=== PATIENT | female | born 1980 | race Caucasian/White ===

== ENCOUNTER 2016-05-17 09:17 | Emergency (ER) | payer BC ==
[2016-05-17 09:40] VITALS: BP 146/87
--- NOTE | 2016-05-17 10:48 | RAD ---
HISTORY: Trauma, right ankle pain COMPARISONS: None VIEWS: 3, Frontal, lateral, and oblique views of the right ankle FINDINGS: BONE DENSITY: Normal. BONES: There is no displaced fracture. JOINTS: There is no arthropathy. ALIGNMENT: There is no dislocation. SOFT TISSUES: Unremarkable. OTHER FINDINGS: None. IMPRESSION: NO ACUTE OSSEOUS INJURY. IF SYMPTOMS PERSIST, RECOMMEND REPEAT IMAGING.
--- NOTE | 2016-05-17 10:51 | RAD ---
HISTORY: Trauma right foot lateral pain COMPARISONS: None VIEWS: 3, Frontal, lateral, and oblique views of the right foot FINDINGS: BONE DENSITY: Normal. BONES: There is no displaced fracture. JOINTS: There is no arthropathy. ALIGNMENT: There is no dislocation. SOFT TISSUES: Unremarkable. OTHER FINDINGS: None. IMPRESSION: NO ACUTE OSSEOUS INJURY. IF SYMPTOMS PERSIST, RECOMMEND REPEAT IMAGING.
--- NOTE | 2016-05-17 11:12 | UC ---
Lower Extremity/Ankle HPI - HPI Summary HPI Summary: SLIPPED, AND TWISTED RIGHT ANKLE THIS MORNING. PAIN IN ANKLE AND FOOT. NO OTHER INJURIES. NO PREVIOUS ANKLE INJURIES. PAIN WITH WEIGHT BEARING. MILD SWELLING BEGINNING TO DEVELOP. - History of Current Complaint Chief Complaint: UCLowerExtremity Stated Complaint: ANKLE INJURY Time Seen by Provider: 05/17/16 10:03 Hx Obtained From: Patient Hx Last Menstrual Period: 04/21/16 Onset/Duration: Sudden Onset, Lasting Hours, Still Present Severity Initially: Moderate Severity Currently: Moderate Aggravating Factor(s): Standing, Ambulation Alleviating Factor(s): Rest, Elevation Able to Bear Weight: Yes - WITH PAIN - Risk Factors Gout Risk Factors: Negative DVT Risk Factors: Negative Septic Arthritis Risk Factor: Negative - Allergies/Home Medications Allergies/Adverse Reactions: Allergies Allergy/AdvReac Type Severity Reaction Status Date / Time Amoxicillin Allergy Hives Verified 09/03/13 10:55 Cefaclor [From Ceclor] Allergy hives/ Verified 09/03/13 10:55 joint swelling Erythromycin Allergy Nausea Verified 09/03/13 10:55 Sulfa Drugs Allergy Unknown Verified 09/03/13 10:55 Reaction Details Home Medications: Home Medications Norgestimate-Ethinyl Estradiol [Trinessa 0.18/0.215/0.25 mg-35 Mcg] 1 tab PO [History] Propranolol TAB* [Inderal TAB*] 10 mg PO BID 05/17/16 [History Confirmed ] Zolmitriptan 2.5 mg PO 05/17/16 [History] PMH/Surg Hx/FS Hx/Imm Hx Previously Healthy: Yes Endocrine History Of: Denies: Diabetes, Thyroid Disease Cardiovascular History Of: Denies: Cardiac Disorders, Hypertension Respiratory History Of: Denies: COPD, Asthma GI/ History Of: Denies: Ulcer Neurological History Of: Reports: Migraine - A TEEN ONLY - Surgical History Surgical History: Yes Surgery Procedure, Year, and Place: 2000, LAP FOR ENDOMETRIOSIS, [facility] [place]. 2011, [place] [facility]SY, [facility] [place]. D&C - Family History Known Family History: Positive: Cardiac Disease - MATERNAL GF, Other - NO JOINT LAXITY; MATERNAL GF CANCER; MATERNAL GM ALZHEIMERS - Social History Occupation: Employed Full-time Alcohol Use: Occasionally Substance Use Type: None Smoking Status (MU): Never Smoked Tobacco Have You Smoked in the Last Year: No When Did the Patient Quit Smoking/Using Tobacco: 15 years - Immunization History Most Recent Influenza Vaccination: fall 2012 Most Recent Tetanus Shot: unsure Most Recent Pneumonia Vaccination: never Review of Systems Constitutional: Negative Skin: Negative Eyes: Negative ENT: Negative Respiratory: Negative Cardiovascular: Negative Gastrointestinal: Negative Genitourinary: Negative Motor: Negative Neurovascular: Negative Musculoskeletal: Arthralgia - RIGHT FOOT AND ANKLE, Edema, Myalgia - RIGHT FOOT AND ANKLE Neurological: Negative Psychological: Negative All Other Systems Reviewed And Are Negative: Yes Physical Exam Triage Information Reviewed: Yes Appearance: Well-Appearing, No Pain Distress, Well-Nourished Vital Signs: Initial Vital Signs Temp 97.9 F 05/17/16 09:32 Pulse 69 05/17/16 09:32 Resp 18 05/17/16 09:32 BP 146/87 05/17/16 09:32 Pulse Ox 100 05/17/16 09:32 Vital Signs Reviewed: Yes Eye Exam: Normal Eyes: Positive: Conjunctiva Clear ENT Exam: Normal ENT: Positive: Normal ENT inspection, Hearing grossly normal, Pharynx normal, TMs normal Dental Exam: Normal Neck exam: Normal Neck: Positive: Supple, Nontender, No Lymphadenopathy Respiratory Exam: Normal Respiratory: Positive: Chest non-tender, Lungs clear, Normal breath sounds, No respiratory distress, No accessory muscle use Cardiovascular Exam: Normal Cardiovascular: Positive: RRR, No Murmur Abdominal Exam: Normal Abdomen Description: Positive: Nontender, No Organomegaly Musculoskeletal Exam: Normal Neurological Exam: Normal Psychological Exam: Normal Skin Exam: Normal Lower Extremity Course/Dx - Differential Dx/Diagnosis Differential Diagnosis/HQI/PQRI: Fracture (Closed), Sprain, Strain Provider Diagnoses: RIGHT ANKLE/FOOT SPRAIN Discharge - Discharge Plan Condition: Stable Disposition: HOME Patient Education Materials: Ankle Sprain (ED) Referrals: [facility] [place] [facility] [Outside] Chip Mcmahan MD [Primary Care Provider] -
== END 2016-05-17 11:20 | disposition home or self-care (01) ==
LOC: UCEAST 09:17
DX: S93.401A Sprain of unspecified ligament of right ankle, initial encounter (principal); X50.1XXA Overexertion from prolonged static or awkward postures, initial encounter; Y93.9 Activity, unspecified; Y99.9 Unspecified external cause status; Z88.1 Allergy status to other antibiotic agents; Z88.2 Allergy status to sulfonamides
CPT/HCPCS: 99213; G0463

== ENCOUNTER 2016-08-08 08:04 | Day surgery (SDC) | payer BC ==
[~2016-08-08 08:04] MED LIST: Buffered Lidocaine 0.9% SYRIN* 5 ML/SYR SYRINGE INTRADERM ONE; Famotidine IV* 10 MG/ML 2 ML (20 mg) IV ONE; Scopolamine 1.5 mg* PATCH TRANSDERM SCH
[2016-08-08] MEDS ORDERED: fentaNYL* 50 MCG/ML 2 ML VIAL (100 MCG VIAL) ONE (08:10)
[2016-08-08] MEDS ORDERED: Propofol* 10 MG/ML 20 ML BTL IV PUSH ONE ×2 (08:10→09:42)
[2016-08-08] MEDS ORDERED: Midazolam* 1 MG/ML 5 ML VIAL (5 MG) ONE (08:10)
[2016-08-08] MEDS ORDERED: Lidocaine 2% PF * 5 ML VIAL ONE (08:10)
[2016-08-08] MEDS ORDERED: Ondansetron INJ* 2 MG/ML VIAL ONE (08:10)
[2016-08-08] MEDS ORDERED: Dexamethasone IV* 4 MG/ML 1 ML (4 MG) ONE (08:10)
[2016-08-08] MEDS ORDERED: DiMENhydriNATE IV* 50 MG/ML VIAL ONE (08:10)
[2016-08-08] MEDS ORDERED: Ketorolac INJ* 30 MG/ML 1 ML VIAL ONE (08:10)
[2016-08-08] MEDS ORDERED: Famotidine IV* 10 MG/ML 2 ML (20 mg) ONE (08:19)
[2016-08-08] MEDS ORDERED: Scopolamine 1.5 mg* PATCH ONE (08:19)
[2016-08-08] MEDS ORDERED: Buffered Lidocaine 0.9% SYRIN* 5 ML/SYR SYRINGE ONE (08:20)
[2016-08-08] MEDS ORDERED: Acetaminophen TAB* 325 MG PO PRN (08:26)
[2016-08-08] MEDS ORDERED: oxyCODONE TAB* 5 MG TAB PO PRN (08:26)
[2016-08-08] MEDS ORDERED: DiMENhydriNATE IV* 50 MG/ML VIAL IV PUSH PRN (08:26)
[2016-08-08 08:48] LABS: Manual Entry Verification HAN0055; UR Preg Internal Control QC Line Present
[2016-08-08] MEDS ORDERED: VASOPRESSIN 20 UNITS/ML 1 ML VIAL ONE (09:04)
[2016-08-08] MEDS ORDERED: Ferric Subsulfate* 8 ML BTL ONE (09:04)
[2016-08-08] MEDS ORDERED: Acetic Acid 0.25%* 250 ML BTL ONE (09:05)
[2016-08-08] MEDS ORDERED: Iodine Strong (LUGOL'S)* 14 ML BTL ONE (09:44)
[2016-08-08] MEDS ORDERED: Ibuprofen TAB* 600 MG PO PRN (10:04)
[2016-08-08] MEDS ORDERED: oxyCODONE/Acetamin 5/325 MG* TAB PO PRN (10:05)
[2016-08-08] MEDS ORDERED: oxyCODONE/Acetamin 5/325 MG* TAB ONE (10:25)
[2016-08-08 10:56] VITALS: BP 117/69
--- NOTE | 2016-08-08 16:11 | OP ---
DATE OF OPERATION: 08/08/16 - [facility] DATE OF : 76 SURGEON: Dr. Schumacher. ANESTHESIOLOGIST: Dr. Brizuela. ANESTHESIA: General endotracheal anesthesia. PRE-OP DIAGNOSES: High-grade dysplasia, on Pap; low-grade dysplasia, on colposcopy biopsy; positive high-risk HPV. POST-OP DIAGNOSES: High-grade dysplasia, on Pap; low-grade dysplasia, on colposcopy biopsy; positive high-risk HPV. OPERATIVE PROCEDURE: Colposcopy, Mcclendon cone biopsy, endocervical curettage. ESTIMATED BLOOD LOSS: Less than 20 cc. SPECIMEN: Cone biopsy cut at 12 o'clock and endocervical curettage. FLUIDS: Per anesthesia. DRAINS: None. FINDINGS: Midline cervix. No abnormal vessel seen. No abnormality seen on the cervix with acetic acid or Lugol solution. COMPLICATIONS: None. CONDITION: The patient tolerated the procedure well and was brought to recovery room, awake and in stable condition. COUNTS: Sponge count correct x2. DESCRIPTION OF PROCEDURE: The patient was brought to the operating room. Urine test was negative. When anesthesia was found to be adequate, the patient was prepped and draped in the usual sterile fashion in the dorsal lithotomy position. Betadine was not used for the prep. Exam under anesthesia was performed. A coated speculum was placed in the vagina and colposcopy was performed with the above findings noted, using both the acetic acid and Lugol solution. A size large Mcclendon cone biopsy was used, cut was at 12 o'clock and the specimen was removed in one piece. This was sent to pathology. Endocervical curettage was then performed and that specimen was sent to pathology. Excellent hemostasis was achieved with Monsel solution. There was no bleeding seen. All instruments were removed from the vagina and the patient was brought to the recovery room, awake and in stable condition. [id number]/[facility] #: [id number] MTDD
== END 2016-08-08 11:39 | disposition home or self-care (01) ==
LOC: OR 08:04
PROVIDERS: ATTEND Obstetrics & Gynecology
DX: D06.9 Carcinoma in situ of cervix, unspecified (principal); Z87.891 Personal history of nicotine dependence
CPT/HCPCS: 81025; 88305; 88307; A9270-GY; J1100; J1240; J1885; J2250; J2405; J2704; J3010

== ENCOUNTER 2018-10-31 13:56 | Emergency (ER) | payer BC ==
[2018-10-31 15:18] VITALS: BP 145/87
--- NOTE | 2018-10-31 15:30 | UC ---
Lower Extremity/Ankle HPI - HPI Summary HPI Summary: Pt presents with c/o right ankle an foot pain that began immediately post slipping on wet floor while wearing high heeled wedge shoes, pt reports foot inverted. Pt has been icing foot since accident. - History of Current Complaint Chief Complaint: UCLowerExtremity Stated Complaint: RIGHT FOOT INJURY Time Seen by Provider: 10/31/18 15:09 Hx Obtained From: Patient Hx Last Menstrual Period: 10/27/18 ?: No Onset/Duration: Sudden Onset, Still Present Severity Initially: Moderate Severity Currently: Moderate Pain Intensity: 5 Aggravating Factor(s): Standing, Ambulation Alleviating Factor(s): Rest, Elevation Able to Bear Weight: No - Risk Factors Gout Risk Factors: Age Over 40 DVT Risk Factors: Negative Septic Arthritis Risk Factor: Negative - Allergies/Home Medications Allergies/Adverse Reactions: Allergies Allergy/AdvReac Type Severity Reaction Status Date / Time MS Amoxicillin [Amoxicillin] Allergy Hives Verified 08/08/16 08:30 MS Cefaclor [From Ceclor] Allergy hives/ Verified 08/08/16 08:30 joint swelling MS Erythromycin Allergy Nausea Verified 08/08/16 08:30 [Erythromycin] MS Sulfa Drugs [Sulfa Drugs] Allergy Unknown Verified 08/08/16 08:30 Reaction Details ENVIRONMENTAL/SEASONAL Allergy Congestion Uncoded 08/08/16 08:30 PMH/Surg Hx/FS Hx/Imm Hx Previously Healthy: Yes Neurological History: Migraine - Surgical History Surgical History: Yes Surgery Procedure, Year, and Place: 2000, [place] [facility] [place] [facility] [place] - Family History Known Family History: Positive: Cardiac Disease - MATERNAL GF, Other - NO JOINT LAXITY; MATERNAL GF CANCER; MATERNAL GM ALZHEIMERS - Social History Occupation: Employed Full-time Lives: With Family Alcohol Use: Occasionally Alcohol Amount: 1-2 drinks a week Substance Use Type: None Smoking Status (MU): Former Smoker Amount Used/How Often: smoked for approx 3 yrs, 1/2 ppd at most Have You Smoked in the Last Year: No When Did the Patient Quit Smoking/Using Tobacco: QUIT 20 years ago - Immunization History Most Recent Influenza Vaccination: fall 2012 Most Recent Tetanus Shot: unsure Most Recent Pneumonia Vaccination: never Review of Systems All Other Systems Reviewed And Are Negative: Yes Constitutional: Positive: Negative Skin: Positive: Bruising - lateral right foot Eyes: Positive: Negative ENT: Positive: Negative Respiratory: Positive: Negative Cardiovascular: Positive: Negative Gastrointestinal: Positive: Negative Genitourinary: Positive: Negative Motor: Positive: Negative Neurovascular: Positive: Negative Musculoskeletal: Positive: Arthralgia, Myalgia Neurological: Positive: Negative Psychological: Positive: Negative Is Patient Immunocompromised?: No Physical Exam Triage Information Reviewed: Yes Appearance: Pain Distress Vital Signs: Initial Vital Signs Temp 98.4 F 10/31/18 15:13 Pulse 64 10/31/18 15:13 Resp 15 10/31/18 15:13 BP 145/87 10/31/18 15:13 Pulse Ox 100 10/31/18 15:13 Vital Signs Reviewed: Yes Eye Exam: Normal ENT Exam: Normal ENT: Positive: Hearing grossly normal Dental Exam: Normal Neck exam: Normal Respiratory: Positive: No respiratory distress Musculoskeletal: Positive: ROM Limited @ - pain with ROM Neurological Exam: Normal Psychological Exam: Normal Skin Exam: Other - bruising right mid lateral foot ~ nickel size Diagnostics - Radiology No standard instances Radiology Interpretation Completed By: Radiologist - Sterile Processing Technologist: Pranav Anaya C ([id number]) Tool Keeper: HEATHER ([email or web address]) Report Date: 08/2018 15:22:00 Report Status: Final Start of Report Content = Patient Name: SARAH DIEGO Medical Record#: [id number] Ordering Physician: Kristen Milian SURVEILLANCE AGENT Acct.#: [id number] : 1980 Age: 38 Sex: F Location: [facility] Exam Date: 10/31/18 152 ADM Status: REG ER Order Information: FOOT RIGHT 3+ VWS Accession Number: [id number] CPT: 25007 Indication: Pain and soft tissue swelling dorsal and lateral aspects RIGHT foot following rolling injury. Comparison: May 17, 2016 Technique: AP, lateral, and oblique views RIGHT foot. Report: Negative for fracture or malalignment. 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 Os peroneum accessory ossicle. Unremarkable soft tissue contours. IMPRESSION: #. Negative for fracture. <Electronically signed by Pranav Anaya MD in OV> [id number] Dictated By: Pranav Anaya MD Dictated Date/Time: 10/31/181546 Transcribed Date/Time: 10/31/181546 Copy to: CC:Chip Mcmahan MD; Son Diaz MD; Kristen Milian NP Imaging - [facility] [place] [facility] - [facility] [address] [address] ph [phone]) ph ([phone]) ph ([phone]) End of Report Content Lower Extremity Course/Dx - Course Course Of Treatment: I discussed with the pt her xray results and instructed her on how to apply ice to injured area. Pt has own crutches. Pt verbalized understanding and agreed to plan of care. - Differential Dx/Diagnosis Differential Diagnosis/HQI/PQRI: Fracture (Closed), Sprain, Strain Provider Diagnosis: Moderate right ankle sprain Discharge ED - Sign-Out/Discharge Documenting (check all that apply): Patient Departure All imaging exams completed and their final reports reviewed: Yes - Discharge Plan Condition: Stable Disposition: HOME Patient Education Materials: Ankle Sprain (ED), Ice Pack Application (ED), Safe Use of NSAIDs (ED) Referrals: Chip Mcmahan MD [Primary Care Provider] - - Billing Disposition and Condition Condition: STABLE Disposition: Home
== END 2018-10-31 16:05 | disposition home or self-care (01) ==
LOC: UCCORT 13:56
DX: S93.401A Sprain of unspecified ligament of right ankle, initial encounter (principal); X50.0XXA Overexertion from strenuous movement or load, initial encounter; Y93.9 Activity, unspecified; Y92.9 Unspecified place or not applicable; Z87.891 Personal history of nicotine dependence
CPT/HCPCS: 99211; G0463